=== PATIENT | female | born 1955 | race Caucasian/White ===

== ENCOUNTER → 2019-06-28 12:31 | Outpatient (CLI) | payer OTHER, SELFPAY ==
[2019-06-28 13:57] LABS: Alanine Aminotransferase 53 IU/L (<35); Albumin Globulin Ratio 1.1 (1.0-2.8); Alkaline Phosphatase 171 U/L (38-126); Aspartate Aminotransferase 37 IU/L (14-36); Bilirubin Total 0.4 mg/dL (0.2-1.3); Bilirubin Unconjugated 0.3 mg/dL (0.0-1.1); Globulin 3.8 g/dL (1.7-4.1); HEMOLYSIS < 15 (0-50); Total Protein 7.8 g/dL (6.3-8.2)
[2019-07-03 13:53] LABS: QuantiFERON TB NEGATIVE
[2019-07-03 13:54] LABS: NIL 0.01; TB1-NIL <0.01
[2019-07-03 13:55] LABS: TB2-NIL <0.01
== END ==
PROVIDERS: Family Provider Naturopath; PCP Naturopath; Referring Provider Internal Medicine Rheumatology; Visit Provider Internal Medicine Rheumatology
DX: R74.8 Abnormal levels of other serum enzymes (principal); M45.9 Ankylosing spondylitis of unspecified sites in spine
CPT/HCPCS: 36415; 80076; 86480; 86704; 86706; 87340